=== PATIENT | female | born 1930 | race Caucasian/White ===

== ENCOUNTER 2018-09-20 18:07 | Inpatient (IN) | payer MEDICARE, OTHER ==
[~2018-09-20] VITALS: Ht 160 cm; Wt 45.2 kg
[~2018-09-20 18:07] MED LIST: AMLO5 PO; DIAZ5 PO; DICL75ER PO; HYDCHL25 PO; HYDR1TAB94 PO; HYDRA25 PO; LISI5; MELO7.5 PO
[2018-09-20] MEDS ORDERED: AMLO5 PO (18:49)
[2018-09-20] MEDS ORDERED: LISI5 PO ×2 (18:50→20:48)
[2018-09-20] MEDS ORDERED: CLOP75 PO (18:51)
[2018-09-20] MEDS ORDERED: LISI20 PO (18:51)
[2018-09-20] MEDS ORDERED: OXYB5 PO (18:51)
[2018-09-20 19:19] LABS: BASOPHILS ABSOLUTE AUTO 0.09 K/mm3 (0.00-0.23); BASOPHILS PERCENT AUTO 2 % (0-2); EOSINOPHILS ABSOLUTE AUTO 0.39 K/mm3 (0.00-0.68); EOSINOPHILS PERCENT AUTO 7 % (0-6); Hematocrit 38.5 % (33.0-51.0); Hemoglobin 12.4 g/dL (11.5-16.0); IMMATURE GRAN ABSOLUTE AUTO 0.02 K/mm3 (0.00-0.10); IMMATURE GRAN PERCENT AUTO 0 % (0-1); LYMPHOCYTES ABSOLUTE AUTO 1.65 K/mm3 (0.84-5.20); LYMPHOCYTES PERCENT AUTO 28 % (21-46); MONOCYTES ABSOLUTE AUTO 0.43 K/mm3 (0.16-1.47); MONOCYTES PERCENT AUTO 7 % (4-13); Mean Corpuscular HGB 29.7 pg (26.0-34.0); Mean Corpuscular HGB Conc 32.2 g/dL (31.5-36.5); Mean Corpuscular Volume 92 fL (80-100); Mean Platelet Volume 10.2 fL (9.1-12.4); NEUTROPHILS ABSOLUTE AUTO 3.34 K/mm3 (1.96-9.15); NEUTROPHILS PERCENT AUTO 56 % (41-73); Platelet Count 264 K/mm3 (150-400); RDW Coefficient Variation 13.4 % (11.7-14.2); RDW Standard Deviation 45.6 fL (35.1-46.3); Red Blood Cell Count 4.17 M/mm3 (3.80-5.20); White Blood Cell Count 5.92 K/mm3 (4.00-11.30)
[2018-09-20 20:00] LABS: Alanine Aminotransfer (ALT/SGP 14 U/L (12-78); Albumin, Blood 3.3 g/dL (3.4-5.0); Albumin/Globulin Ratio 0.9 (0.8-1.8); Alk Phos 89 U/L (50-136); Anion Gap 7 mmol/L (6-16); Aspartate Aminotrans (AST/SGOT 15 U/L (12-37); Bilirubin, Total 0.7 mg/dL (0.1-1.0); Blood Urea Nitrogen 21 mg/dL (8-24); Bun/Creatinine Ratio 18.9 (12.0-20.0); CO2, Blood 28 mmol/L (21-32); Calcium, Blood 8.7 mg/dL (8.5-10.1); Chloride, Blood 108 mmol/L (98-108); Creatinine, Blood 1.11 mg/dL (0.40-1.00); Globulin, Blood 3.6 g/dL (2.2-4.0); Glomerular Filtration Rate 50 (60-); Glucose, Blood 116 mg/dL (70-99); Potassium, Blood 4.2 mmol/L (3.5-5.5); Sodium, Blood 143 mmol/L (136-145); Total Protein, Blood 6.9 g/dL (6.4-8.2); Troponin I <0.015 ng/mL (0.000-0.040)
[2018-09-20 20:26] LABS: International Normalized Ratio 0.99; Prothrombin Time Results 10.5 Sec (9.7-11.5)
--- NOTE | 2018-09-21 04:23 | NUR ---
SHIFT SUMMARY THE PT ADMITTED FOR ACUTE CVA. DNR. NPO. BEDREST WITH BSC PRIVLEDGES. HOWEVER, PT DOES PREFER TO USE THE BR INSTEAD OF THE COMMODE. TELE-SINUS MEAGAN AT A RATE OF 58 PER REST ROOM MATRON. PT TO HAVE MRI TODAY, QUESTIONAIR IN THE FRONT OF PT CHART AND PT IS TO RECIEVE ATIVAN 15 MINUTES PRIOR TO THE MRI DUE TO BEING CLOTROPHOBIC. 20 G IV TO L FA. PT IS ALERT, ORIENTED, PLEASENT, COOPERATIVE WITH CARE. 1 PERSON ASSIST FOR TRANSFERS. HOWEVER, PLOF PT IS INDEPENDENT AND LIVES ALONE, WHICH IS HER PLAN WITH SHE DISCHARGES FROM THE HOSPITAL. THE PT PRESENTED TO THE ED WITH C/O R SIDED WEAKNESS. PT STATED THAT SHE NOTICED WEAKNESS WHEN ATTEMPTING TO HOLD A GLASS AND IT KEPT DROPPING OUT OF HER HAND. THE PT ALSO REPORTED NUMBNESS AND TINGLING TO THE FINGERS ON R HAND WITH DIZZINESS, R SIDED FACILA DROOP, AND NUMBNESS. THE PT DID NOT APPEAR TO PRESENT ANY WEAKNESS OR FACIAL DROOP UPON ADMIT ASSESSMENT. HOWEVER, NUMBNESS AND TINGLING DID PERSIST. THE PT IS NOTED TO HAVE PERMISSIVE HTN X 48 HOURS OR UNTIL THE MRA RESULTS. MD NOTE STATES TO HOLD HOME BP MEDS FOR POSSIBLY ACUTE CVA AND WILL NOT ATTACK BP UNLESS SYSTOLIC IS GREATER THEN 220. THE PT IS REALLY DISAPPOINTED TO BE IN THE HOSPITAL AND STATED THAT SHE ONLY CAME BECAUSE FAMILY ENCOURAGED HER TO COME IN. THE PT WAS FARELY UPSET DUE TO BEING ADMITTED NPO STATUS BECAUSE SHE REALLY WANTED A HAMBURGER. PROVIDED THE PT WITH LEMON GLYCERIN SWABS TO MOISTEN HER MOUTH WHILE WE AWAIT ST EVAL AND MRI/MRA RESULTS. THE PT VERBALIZED AN UNDERSTANDING OF THE INFORMATION PROVIDED AND PT DAUGHTER AGREED TO BRING PT A HAMBURGER TOMMORROW WHEN NO LONGER NPO. PT ALSO STATED THAT SHE LOVES LEMON SO THE GLYCERIN SWABS WORKED VERY WELL. PT HAS APPEARED TO SLEEP COMFORTABLY MOST OF THE NIGHT WITH NO APPARENT SIGNS OF ACUTE DISTRESS. NEURO CHECKS HAVE BEEN WNL OTHER THEN THE NUMBNESS AND TINGLING WHICH HAS IMPROVED. ABLE TO MAKE NEEDS KNOWN AND CALL LIGHT IN REACH.
--- NOTE | 2018-09-21 11:04 | NUR ---
TRANSPORTED TO MRI; IN NO ACUTE DISTRESS
--- NOTE | 2018-09-21 15:36 | NUR ---
SITTING UP IN BED EATING A HAMBURGER TALKING AND LAUGHING WITH FAMILY. NEURO INTACT EXCEPT SLIGHT NUMBNESS TO RIGHT 4TH AND 5TH FINGERS.
--- NOTE | 2018-09-22 00:34 | NUR ---
DROPPED ATIVAN AT APPROXIMATELY 2130 THIS NURSE ENTERED PT ROOM TO ADMINISTER BEDTIME DOSE OF ATIVAN, WHICH WAS OBTAINED AND ORDERED BY DAY NURSE TO ASSIST PT TO SLEEP IN HOPES TO PREVENT PT FROM LEAVING AMA. THIS NURSE ENTERED ROOM, SCANNED PT AND SCANNED THREE PILLS, ONE OF WHICH WAS THE FIRST ATIVAN. THE PT ASKED THIS NURSE WHICH MEDICATION WAS THE ONE TO ASSIST WITH SLEEP AND THIS NURSE ADVISED PT THAT IT WAS THE SMALL ROUND PILL. THE PT DID NOT BELIEVE THAT SHE COULD TAKE ALL THREE MEDS AT THE SAME TIME SO SHE SCOOPED THE ATIVAN FROM THE MEDICATION CUP AND HELD IT BETWEEN HER FINGURS. SHE THEN LIFTED POINTER FINGER AND THUMB TO MOUTH, TILTED HER HEAD BACK, AND APPEARED TO DROP THE ATIVAN FROM BETWEEN THE TWO FINGERS INTO HER MOUTH. THE PT THEN RELIZED THAT THE MEDICATION HAD NOT ACTUALLY ENTERED HER MOUTH. THIS NURSE IMMEDIATELY CHECKED INSIDE THE PTS MOUTH INCLUDEING UNDER AND AROUND DENTURES AND NOT MEDICATION. THIS NURSE AND PT THEN LOOKED THROUGH BED, BEDDING, ON THE FLOOR AROUND THE BED AND STILL WERE UNABLE TO LOCATE THE MEDICATION. THIS NURSE HAD PT GET UP OUT OF BED, PT GOWN REMOVED AND SEARCH, PANTS REMOVED AND SEARCHED, BEDDING REMOVED SHAKEN AND SEARCHED, AGAIN CHECKED THE FLOOR TO SEE IF MEDICATION HAD DROPPED ON THE GROUND AND STILL UNABLE TO LOCATE ATIVAN. THIS NURSE WENT AND REPORTED DROPPED ATIVAN TO CHARGE NURSE, PULLED SECOND PILL AND ADMINISTERED ASSISTING PT THIS TIME TO PLACE MEDICATION INTO MOUTH. DOCUMENTED 2 DOSES OF ATIVAN GIVEN THIS NIGHT BUT NOTES INDICATE THAT SECOND DOSE WAS DROPPED. WASTED WITH CHARGE NURSE FIRST DOSE IN COMPUTER. CONTINUE TO MONITOR ROOM, PT AND BED FOR LOST MEDICATION IN HOPES TO FIND IT AND DISCARD IN PROPER WASTE CONTAINER.
--- NOTE | 2018-09-22 04:30 | NUR ---
SHIFT SUMMARY PTS DIET CHANGED TO LOW FAT, CARDIAC, 2 GRAM LOW SODIUM DIET. ALSO NEW ORDERS TO AMBULATE PT WITH ASSIST FOUR TIMES PER DAY WITH A GAITBELT AND WALKER PRN. PT IS NOTED A POSSIBLE DC TODAY. PT DID STATED THAT SHE WILL BE GOING HOME TODAY NO MATTER WHAT. ADVISED COOK HELPER VEGETABLE TO NOT BOTHER PT PER PT REQUEST EVEN FOR VITALS IF PT WAS SLEEPING. PT VERY CONCERNED ABOUT NOT BEING ABLE TO SLEEP. OFFERED PT EAR PLUGS, AND TO CLOSE THE DOOR AND THE PT STATED THAT SHE PREFERS THE DOOR OPEN AND IS TE-MOAK ANYWAY. ATIVAN ADMINISTERED PER EMAR. PT DOES APPEAR TO HAVE SLEPT THE MAJORITY OF THE NIGHT BUT NOT COMPLETELY CLEAR STAFF WERE ASKED TO PROVIDE MINIMAL CARE UNLESS ASKED. NO APPARENT SIGNS OF ACUTE DISTRESS. ABLE TO MAKE NEEDS KNOWN AND CALL LIGHT IN REACH.
[2018-09-22 05:45] LABS: CHOL/HDL RATIO 2.8; Cholesterol 167 mg/dL (50-200); HDL Cholesterol 60 mg/dL (>39); LDL/HDL RATIO 1.5; Low Density Lipoprotein Chol 92 mg/dL (0-110); Triglycerides 77 mg/dL (30-160); Very Low Density Lipoprot Chol 15 mg/dL (6-32)
[2018-09-22 05:48] LABS: Thyroid Stimulating Hormone 0.991 uIU/mL (0.360-4.800)
[2018-09-22] MEDS ORDERED: ATOR40TA PO (10:06)
--- NOTE | 2018-09-22 11:13 | NUR ---
IDSCHARGE PT STATE SOME RESIDUAL R HAND N/T THAT IS IMPROVING, STATE ALL OTHER NEURO DEFICITS RESOLVED. HOPEFUL TO GO HOME. DR MARTIN IN TO SEE PT, DAUGHTER PRESENT. STATE OK FOR D/C HOME, PLACE ORDERS. NEW SCRIPT FAXED TO [facility]/REQUEST. IV D/C INTACT. D/C INSTRUCT REVIEWED WITH PT/DAUGHTER. INTERNAL AUDITOR PROVIDE W/C ESCORT FROM HOSP. PT IS PLEASANT/APPRECIATIVE.
== END 2018-09-22 10:45 | disposition home or self-care (01) | DRG 65 ==
LOC: ER 18:07 → MEDS 20:18 → ENPENDDIS 09-22 09:56 → MEDS 09-22 10:45
PROVIDERS: Emergency Medicine; Internal Medicine; ADMIT Hospitalist
DX: I63.81 Other cerebral infarction due to occlusion or stenosis of small artery (principal); Z68.1 Body mass index [BMI] 19.9 or less, adult; G81.91 Hemiplegia, unspecified affecting right dominant side; R20.2 Paresthesia of skin; I65.29 Occlusion and stenosis of unspecified carotid artery; N18.3 Chronic kidney disease, stage 3 (moderate); I12.9 Hypertensive chronic kidney disease with stage 1 through stage 4 chronic kidney disease, or unspecified chronic kidney disease; R32 Unspecified urinary incontinence; F40.240 Claustrophobia; Z66 Do not resuscitate; F17.210 Nicotine dependence, cigarettes, uncomplicated; Z88.2 Allergy status to sulfonamides; Z79.02 Long term (current) use of antithrombotics/antiplatelets; Z79.899 Other long term (current) drug therapy
CPT/HCPCS: 36415; 70450; 70544; 70551; 80053; 80061; 84443; 84484; 85025; 85610; 85730; 92610; 93005; 93010; 93306; 93880; 97162; 97165; 97530; 99285-25; J1650; J2060

== ENCOUNTER 2019-04-20 10:08 | Emergency (ER) | payer MEDICARE, OTHER ==
[~2019-04-20] VITALS: Ht 160 cm; Wt 43.5 kg
[~2019-04-20 10:08] MED LIST changes: +ATOR40TA PO; +CLOP75 PO; +LISI20 PO; +LISI5 PO; +OXYB5 PO
[2019-04-20 10:58] LABS: BASOPHILS ABSOLUTE AUTO 0.11 K/mm3 (0.00-0.23); BASOPHILS PERCENT AUTO 1 % (0-2); EOSINOPHILS PERCENT AUTO 10 % (0-6); Hemoglobin 13.2 g/dL (11.5-16.0); IMMATURE GRAN ABSOLUTE AUTO 0.02 K/mm3 (0.00-0.10); IMMATURE GRAN PERCENT AUTO 0 % (0-1); LYMPHOCYTES ABSOLUTE AUTO 1.74 K/mm3 (0.84-5.20); LYMPHOCYTES PERCENT AUTO 22 % (21-46); MONOCYTES ABSOLUTE AUTO 0.56 K/mm3 (0.16-1.47); MONOCYTES PERCENT AUTO 7 % (4-13); Mean Corpuscular HGB 29.9 pg (26.0-34.0); Mean Corpuscular HGB Conc 32.2 g/dL (31.5-36.5); Mean Corpuscular Volume 93 fL (80-100); Mean Platelet Volume 10.5 fL (9.1-12.4); NEUTROPHILS ABSOLUTE AUTO 4.81 K/mm3 (1.96-9.15); NEUTROPHILS PERCENT AUTO 60 % (41-73); Platelet Count 279 K/mm3 (150-400); RDW Coefficient Variation 13.4 % (11.7-14.2); RDW Standard Deviation 45.9 fL (35.1-46.3); Red Blood Cell Count 4.41 M/mm3 (3.80-5.20); White Blood Cell Count 8.04 K/mm3 (4.00-11.30)
[2019-04-20 11:08] LABS: Albumin, Blood 3.6 g/dL (3.4-5.0); Albumin/Globulin Ratio 0.9 (0.8-1.8); Bilirubin, Total 0.7 mg/dL (0.1-1.0); Bun/Creatinine Ratio 23.1 (12.0-20.0); Calcium, Blood 9.2 mg/dL (8.5-10.1); Creatinine, Blood 1.34 mg/dL (0.40-1.00); Potassium, Blood 4.7 mmol/L (3.5-5.5); Total Protein, Blood 7.6 g/dL (6.4-8.2)
== END 2019-04-20 13:44 | disposition home or self-care (01) ==
LOC: ER 10:08
PROVIDERS: Emergency Medicine
DX: K80.80 Other cholelithiasis without obstruction (principal); Z88.2 Allergy status to sulfonamides; Z79.899 Other long term (current) drug therapy; I12.9 Hypertensive chronic kidney disease with stage 1 through stage 4 chronic kidney disease, or unspecified chronic kidney disease; N18.3 Chronic kidney disease, stage 3 (moderate); F17.210 Nicotine dependence, cigarettes, uncomplicated
CPT/HCPCS: 36415; 74176; 76705; 80053; 83690; 85025; 93005; 93010; 99284-25; J2405; J7030

== ENCOUNTER 2020-10-19 06:34 | Observation (INO) | payer MEDICARE, OTHER ==
[~2020-10-19] VITALS: Ht 160 cm; Wt 48.0 kg
[2020-10-19 08:29] LABS: BASOPHILS ABSOLUTE AUTO 0.07 K/mm3 (0.00-0.23); BASOPHILS PERCENT AUTO 1 % (0-2); EOSINOPHILS ABSOLUTE AUTO 0.02 K/mm3 (0.00-0.68); EOSINOPHILS PERCENT AUTO 0 % (0-6); Hematocrit 39.3 % (33.0-51.0); Hemoglobin 12.7 g/dL (11.5-16.0); IMMATURE GRAN ABSOLUTE AUTO 0.02 K/mm3 (0.00-0.10); IMMATURE GRAN PERCENT AUTO 0 % (0-1); LYMPHOCYTES ABSOLUTE AUTO 0.94 K/mm3 (0.84-5.20); LYMPHOCYTES PERCENT AUTO 12 % (21-46); MONOCYTES ABSOLUTE AUTO 0.37 K/mm3 (0.16-1.47); MONOCYTES PERCENT AUTO 5 % (4-13); Mean Corpuscular HGB 29.1 pg (26.0-34.0); Mean Corpuscular HGB Conc 32.3 g/dL (31.5-36.5); Mean Corpuscular Volume 90 fL (80-100); Mean Platelet Volume 9.6 fL (9.1-12.4); NEUTROPHILS ABSOLUTE AUTO 6.48 K/mm3 (1.96-9.15); NEUTROPHILS PERCENT AUTO 82 % (41-73); Platelet Count 249 K/mm3 (150-400); RDW Coefficient Variation 13.2 % (11.7-14.2); RDW Standard Deviation 43.9 fL (35.1-46.3); Red Blood Cell Count 4.37 M/mm3 (3.80-5.20)
[2020-10-19 08:36] LABS: Albumin, Blood 3.5 g/dL (3.4-5.0); Albumin/Globulin Ratio 0.9 (0.8-1.8); Bilirubin, Total 0.6 mg/dL (0.1-1.0); Bun/Creatinine Ratio 20.9 (12.0-20.0); Calcium, Blood 9.5 mg/dL (8.5-10.1); Creatinine, Blood 1.15 mg/dL (0.40-1.00); Globulin, Blood 3.9 g/dL (2.2-4.0); Potassium, Blood 4.3 mmol/L (3.5-5.5); Total Protein, Blood 7.4 g/dL (6.4-8.2)
--- NOTE | 2020-10-19 12:36 | NUR ---
PT ARRIVED TO ROOM 224 FROM ER DEPT PT IS BEING ADMITTED FOR ACUTE RAFAEL DR TREJO IS AWARE UNSURE OF IF PT WILL GO TODAY OR SAT WILL KEEP NPO PT HAS BEEN HAVING EMESIS LAST PAIN WAS YESTERDAY PT'S DAUGHTER IS AT BEDSIDE
[2020-10-19 14:40] LABS: Influenza A, PCR NEGATIVE (NEGATIVE); Influenza B, PCR NEGATIVE (NEGATIVE); Resp Syncytial Virus, PCR NEGATIVE (NEGATIVE); SARS-Cov-2 (COVID-19) PCR, MMC NEGATIVE (NEGATIVE)
--- NOTE | 2020-10-19 14:52 | NUR ---
ASSUMED CARE OF PATIENT. PT RESTING IN BED, DENIES ANY NEEDS AT THIS TIME. PTS DAUGHTER AT BEDSIDE
--- NOTE | 2020-10-19 15:33 | NUR ---
pt transported to day surg
--- NOTE | 2020-10-19 15:35 | NUR ---
TO DAY SURGERY PER BED
--- NOTE | 2020-10-19 15:45 | NUR ---
PT TO SDS FROM SURGICAL FLOOR. NPO SINCE 1400 YESTERDAY. History, Chart, Medications and Allergies reviewed before start of procedure. Lungs clear T/O to Auscultation. Patient confirms NPO status and agrees with scheduled surgery.
--- NOTE | 2020-10-19 17:23 | NUR ---
10/19/20 1723 Berta Perez PT ON SCHEDULED ANTIBIOTICS AND RECIEVED PRIOR TO ARRIVAL TO OR.
--- NOTE | 2020-10-20 04:17 | NUR ---
SHIFT SUMMARY POD1 LAP RAFAEL, A/O X4 BUT FORGETFUL AND EASILY REORIENTED, TOLERATING DIET, DENIES PAIN, VOIDING WELL. CALL LIGHT IN REACH, WILL CONTINUE TO MONITOR AND REPORT TO ONCOMING DAY RN.
[2020-10-20 05:05] LABS: Hematocrit 33.2 % (33.0-51.0); Hemoglobin 10.7 g/dL (11.5-16.0); Mean Corpuscular HGB 29.1 pg (26.0-34.0); Mean Corpuscular HGB Conc 32.2 g/dL (31.5-36.5); Mean Corpuscular Volume 90 fL (80-100); Mean Platelet Volume 9.4 fL (9.1-12.4); Platelet Count 203 K/mm3 (150-400); RDW Coefficient Variation 13.4 % (11.7-14.2); RDW Standard Deviation 44.6 fL (35.1-46.3); Red Blood Cell Count 3.68 M/mm3 (3.80-5.20); White Blood Cell Count 8.37 K/mm3 (4.00-11.30)
[2020-10-20 05:44] LABS: Calcium, Blood 8.3 mg/dL (8.5-10.1); Creatinine, Blood 1.39 mg/dL (0.40-1.00); Magnesium, Blood 2.1 mg/dL (1.6-2.4); Potassium, Blood 4.8 mmol/L (3.5-5.5)
--- NOTE | 2020-10-20 10:27 | NUR ---
PT TAKEN TO DAY SURGERY AT THIS TIME.
[2020-10-20] MEDS ORDERED: Aspir 8181 MG PO (13:21)
--- NOTE | 2020-10-20 15:56 | NUR ---
DISCHARGE PT AND HER DAUGHTER WERE PROVIDED WITH WRITTEN AND VERBAL DISCHARGE INSTRUCTIONS. THEY REPORTED UNDERSTANDING INSTRUCTIONS. PT EDUCATED ABOUT MEDICATION CHANGES. VSS. PT ESCORTED OUT IN WHEELCHAIR.
== END 2020-10-20 15:48 | disposition home or self-care (01) ==
LOC: ER 06:34 → SURS 06:35 → ER 11:25 → SURS 11:25 → ER 10-20 06:36 → SURS 10-20 06:36
PROVIDERS: Nurse Practitioner Acute Care; Physician Assistant; ADMIT Internal Medicine
DX: C80.1 Malignant (primary) neoplasm, unspecified (principal); C78.6 Secondary malignant neoplasm of retroperitoneum and peritoneum; K80.12 Calculus of gallbladder with acute and chronic cholecystitis without obstruction; I12.9 Hypertensive chronic kidney disease with stage 1 through stage 4 chronic kidney disease, or unspecified chronic kidney disease; N18.30 Chronic kidney disease, stage 3 unspecified; E78.5 Hyperlipidemia, unspecified; I25.10 Atherosclerotic heart disease of native coronary artery without angina pectoris; F17.210 Nicotine dependence, cigarettes, uncomplicated; Z20.822 Contact with and (suspected) exposure to COVID-19
CPT/HCPCS: 0241U; 36415; 74300; 76705; 80048; 80053; 82947; 83690; 83735; 84484; 85025; 85027; 88304; 93005; 93010; 96361; 96374; 96376; 99285-25; A9270; C1729; G0378; J0295; J1100; J1885; J2250; J2405; J2704; J3010; J7030; J7120

== ENCOUNTER 2021-09-29 03:49 | Emergency (ER) | payer MEDICARE, OTHER ==
[~2021-09-29] VITALS: Ht 152.4 cm; Wt 45.4 kg
[~2021-09-29 03:49] MED LIST changes: +Aspir 8181 MG PO
[2021-09-29 04:09] LABS: BASOPHILS ABSOLUTE AUTO 0.03 K/mm3 (0.00-0.23); BASOPHILS PERCENT AUTO 1 % (0-2); EOSINOPHILS PERCENT AUTO 0 % (0-6); Hematocrit 36.6 % (33.0-51.0); Hemoglobin 11.6 g/dL (11.5-16.0); IMMATURE GRAN ABSOLUTE AUTO 0.03 K/mm3 (0.00-0.10); IMMATURE GRAN PERCENT AUTO 1 % (0-1); LYMPHOCYTES ABSOLUTE AUTO 0.53 K/mm3 (0.84-5.20); LYMPHOCYTES PERCENT AUTO 11 % (21-46); MONOCYTES ABSOLUTE AUTO 0.58 K/mm3 (0.16-1.47); MONOCYTES PERCENT AUTO 13 % (4-13); Mean Corpuscular HGB 28.8 pg (26.0-34.0); Mean Corpuscular HGB Conc 31.7 g/dL (31.5-36.5); Mean Corpuscular Volume 91 fL (80-100); Mean Platelet Volume 9.7 fL (9.1-12.4); NEUTROPHILS ABSOLUTE AUTO 3.47 K/mm3 (1.96-9.15); NEUTROPHILS PERCENT AUTO 75 % (41-73); Platelet Count 157 K/mm3 (150-400); RDW Coefficient Variation 13.4 % (11.7-14.2); RDW Standard Deviation 44.8 fL (35.1-46.3); Red Blood Cell Count 4.03 M/mm3 (3.80-5.20); White Blood Cell Count 4.64 K/mm3 (4.00-11.30)
[2021-09-29 04:23] LABS: International Normalized Ratio 1.09; Prothrombin Time Results 11.4 Sec (9.7-11.5)
[2021-09-29 04:25] LABS: Alanine Aminotransfer (ALT/SGP 21 U/L (12-78); Albumin, Blood 3.3 g/dL (3.4-5.0); Alk Phos 62 U/L (50-136); Anion Gap 7 mmol/L (6-16); Aspartate Aminotrans (AST/SGOT 20 U/L (12-37); Bilirubin, Total 0.5 mg/dL (0.1-1.0); Blood Urea Nitrogen 41 mg/dL (8-24); CO2, Blood 23 mmol/L (21-32); Calcium, Blood 8.5 mg/dL (8.5-10.1); Chloride, Blood 107 mmol/L (98-108); Creatinine, Blood 1.71 mg/dL (0.40-1.00); Globulin, Blood 3.4 g/dL (2.2-4.0); Glomerular Filtration Rate 28 (60-); Glucose, Blood 121 mg/dL (70-99); Potassium, Blood 5.1 mmol/L (3.5-5.5); Sodium, Blood 137 mmol/L (136-145); Total Protein, Blood 6.7 g/dL (6.4-8.2); Troponin I <0.015 ng/mL (0.000-0.040)
[2021-09-29 07:44] LABS: Creatine Kinase MB Index 1.5 (0.0-4.0)
[2021-09-29] MEDS ORDERED: AMLODIPINE BES2.5 MG PO (09:00)
[2021-09-29] MEDS ORDERED: TOLTERODINE TART2 M1 PO (09:01)
[2021-09-29] MEDS ORDERED: LISI20 PO (09:01)
== END 2021-09-29 15:05 | disposition home or self-care (01) ==
LOC: ER 03:49
PROVIDERS: Student in an Organized Health Care Education/Training Program
DX: S01.01XA Laceration without foreign body of scalp, initial encounter (principal); Z88.2 Allergy status to sulfonamides; I12.9 Hypertensive chronic kidney disease with stage 1 through stage 4 chronic kidney disease, or unspecified chronic kidney disease; N18.30 Chronic kidney disease, stage 3 unspecified; F17.210 Nicotine dependence, cigarettes, uncomplicated; W19.XXXA Unspecified fall, initial encounter
CPT/HCPCS: 12001; 70450; 71260; 72125; 72170; 74177; 80053; 82550; 82553; 84484; 85025; 85610; 86850; 86900; 86901; 90471; 90714; 93005; 93010; 97161; 99285-25; A9270; J7030; Q9967

== ENCOUNTER 2022-01-09 16:09 | Emergency (ER) | payer MEDICARE, OTHER ==
[~2022-01-09] VITALS: Ht 157.5 cm; Wt 52.2 kg
[~2022-01-09 16:09] MED LIST changes: +AMLODIPINE BES2.5 MG PO; +CEPH500 PO; +TOLTERODINE TART2 M1 PO
== END 2022-01-09 19:37 | disposition home or self-care (01) ==
LOC: ER 16:09
DX: S61.217A Laceration without foreign body of left little finger without damage to nail, initial encounter (principal); W23.0XXA Caught, crushed, jammed, or pinched between moving objects, initial encounter; I12.9 Hypertensive chronic kidney disease with stage 1 through stage 4 chronic kidney disease, or unspecified chronic kidney disease; N18.30 Chronic kidney disease, stage 3 unspecified; I25.10 Atherosclerotic heart disease of native coronary artery without angina pectoris; F17.210 Nicotine dependence, cigarettes, uncomplicated; Z79.899 Other long term (current) drug therapy; Z79.82 Long term (current) use of aspirin; Z88.2 Allergy status to sulfonamides
CPT/HCPCS: 12001; 99283-25